=== PATIENT | male | born 1955 | race Caucasian/White ===

== ENCOUNTER 2023-07-11 12:46 | Inpatient (IN) | payer MEDICARE, MEDICAID ==
[~2023-07-11] VITALS: Ht 180.3 cm; Wt 105.7 kg
[2023-07-11] MEDS ORDERED: ALBUTEROL SULFATE 2.5MG/0.5ML INH NEB SOLN INH ONE (13:05)
[2023-07-11] MEDS ORDERED: ALBUTEROL SULFATE 2.5MG/0.5ML INH NEB SOLN As Ordered ONE (13:05)
[2023-07-11] MEDS ORDERED: IPRATROPIUM 0.5MG/ALBUTEROL 2.5MG INH SOL UD 3ML (DUONEB) NEB ONE (13:05)
[2023-07-11] MEDS ORDERED: IPRATROPIUM 0.5MG/ALBUTEROL 2.5MG INH SOL UD 3ML (DUONEB) As Ordered ONE (13:06)
[2023-07-11 13:11] LABS: VENOUS BASE EXCESS 1.3 (-2.0-2.0); VENOUS PARTIAL PRESSURE CO2 36.1 mmHg (38.0-50.0); VENOUS PARTIAL PRESSURE O2 37.2 mmHg (30.0-50.0); VENOUS PH 7.458 UNITS (7.330-7.430); VENOUS TOTAL CO2 26.1 MMOL/L (24.0-28.0)
[2023-07-11 13:34] LABS: HEMATOCRIT 27.6 % (42.0-52.0); HEMOGLOBIN 9.6 g/dl (13.5-17.5); MEAN CORPUSCULAR HEMOGLOBIN 31.5 pg (27.0-33.0); MEAN CORPUSCULAR HGB CONC 34.8 g/dl (32.0-36.5); MEAN CORPUSCULAR VOLUME 90.5 fl (80.0-96.0); RED BLOOD COUNT 3.05 10^6/uL (4.30-6.10); WHITE BLOOD COUNT 13.5 10^3/uL (4.0-10.0)
[2023-07-11 13:35] LABS: BASO # 0.1 10^3/uL (0.0-0.2); BASO % 0.4 % (0.0-1.0); EOS # 0.4 10^3/uL (0.0-0.5); MONO # 0.8 10^3/uL (0.0-0.8); MONO % 5.5 % (2.0-8.0); NEUTROPHILS # 9.2 10^3/uL (1.5-8.5); NEUTROPHILS % 68.4 % (36.0-66.0); PLATELET COUNT, AUTOMATED 255 10^3/uL (150-450)
[2023-07-11 13:41] LABS: INR 1.48; PROTHROMBIN TIME 17.5 SECONDS (12.5-14.5)
[2023-07-11 13:43] LABS: LIPASE 35 U/L (12-53); PARTIAL THROMBOPLASTIN TIME 36.3 SECONDS (24.8-34.2)
[2023-07-11 13:45] LABS: ALBUMIN 2.2 G/DL (3.2-5.2); ALKALINE PHOSPHATASE 166 U/L (46-116); ALT/SGPT 15 U/L (7.0-40); AST/SGOT 44 U/L (<34); BILIRUBIN,DIRECT 0.5 MG/DL (<0.4); BILIRUBIN,TOTAL 0.9 MG/DL (0.3-1.2); BLOOD UREA NITROGEN 11 MG/DL (9-23); CALCIUM LEVEL 7.4 MG/DL (8.3-10.6); CARBON DIOXIDE LEVEL 25 MMOL/L (20-31); CHLORIDE LEVEL 94 MMOL/L (98-107); CK-MB VALUE MASS < 1.0 NG/ML (<3.6); CREATININE FOR GFR 0.71 MG/DL (0.70-1.30); GLOMERULAR FILTRATION RATE > 60.0 (>49); GLUCOSE, FASTING 166 MG/DL (74-106); POTASSIUM SERUM 3.6 MMOL/L (3.5-5.1); SODIUM LEVEL 132 MMOL/L (136-145); TOTAL PROTEIN 6.9 G/DL (5.7-8.2)
[2023-07-11 13:47] LABS: THYROID STIMULATING HORMONE 4.305 uIU/ML (0.55-4.78)
[2023-07-11 13:49] LABS: CPK CREATINE PHOSPHOKINASE 35 U/L (46-171); MB/CK RELATIVE INDEX 2.85 (< OR =4)
[2023-07-11 13:59] LABS: RSV AMPLIFICATION NEGATIVE (NEGATIVE)
[2023-07-11] MEDS ORDERED: ISOVUE-370 76% 100ML VIAL As Ordered ONE (14:25)
[2023-07-11 14:39] LABS: CK-MB VALUE MASS < 1.0 NG/ML (<3.6); CPK CREATINE PHOSPHOKINASE 33 U/L (46-171); MB/CK RELATIVE INDEX 3.03 (< OR =4)
[2023-07-11] MEDS ORDERED: methylPREDNISolone 125MG 2ML VIAL IV ONE (15:55)
[2023-07-11 16:40] LABS: CPK CREATINE PHOSPHOKINASE 20 U/L (46-171)
[2023-07-11 16:43] LABS: CK-MB VALUE MASS < 1.0 NG/ML (<3.6)
[2023-07-11 17:00] LABS: PROCALCITONIN 0.39 ng/ml
[2023-07-11] MEDS ORDERED: FLEET ENEMA PR PRN (17:15)
[2023-07-11] MEDS ORDERED: LEVALBUTEROL 1.25MG 0.5ML CONCENTRATE NEB INH PRN (17:15)
[2023-07-11] MEDS ORDERED: MOM 30ML SUSPENSION UDC PO PRN (17:15)
[2023-07-11] MEDS ORDERED: LevoFLOXacin 750 MG TABLET PO ONE (17:15)
[2023-07-11] MEDS ORDERED: MED REC IN PROGRESS XX SCH (17:20)
[2023-07-11] MEDS ORDERED: ENOXAPARIN 40MG/0.4ML SYRINGE (J1650 PER 10MG) SC ONE (17:20)
[2023-07-11] MEDS: IPRATROPIUM 0.02% SOLN 0.5MG 2.5ML NEB INH SCH ×3 (18:00→20:00)
[2023-07-11] MEDS ORDERED: CETI-24 PO (18:24)
[2023-07-11] MEDS ORDERED: ZOLO100T PO (18:24)
[2023-07-11] MEDS ORDERED: OMEP-173 PO (18:24)
[2023-07-11] MEDS ORDERED: ROSU10TA6 PO (18:24)
[2023-07-11] MEDS ORDERED: MULT-124 PO (18:24)
[2023-07-11] MEDS ORDERED: HOME MED LIST COMPLETE! XX SCH (18:30)
[2023-07-11] MEDS ORDERED: MORPHINE 2 MG/ML 1ML VIAL IV PRN (18:35)
[2023-07-11] MEDS ORDERED: PERCOCET 5MG/325MG TAB PO ONE (18:35)
[2023-07-11] MEDS ORDERED: NITROGLYCERIN 0.4MG SUBL TABLET SL PRN (18:35)
[2023-07-11] MEDS ORDERED: NS 1,000 ML IV SCH (18:35)
[2023-07-11] MEDS ORDERED: NALOXONE INJ 0.4MG/1ML VIAL IV PRN (18:35)
[2023-07-11] MEDS ORDERED: ASPIRIN 81MG CHEW TABLET PO ONE (18:55)
[2023-07-11 19:32] LABS: CK-MB VALUE MASS < 1.0 NG/ML (<3.6)
[2023-07-11 19:33] LABS: CPK CREATINE PHOSPHOKINASE 25 U/L (46-171)
[2023-07-11] MEDS: LEVALBUTEROL 1.25MG 0.5ML CONCENTRATE NEB INH SCH (19:34)
[2023-07-11] MEDS: KETOROLAC 30 MG/ML 1ML VIAL IV SCH (20:44)
[2023-07-11] MEDS: SUCRALFATE SUSP 1GM/10ML UD PO SCH ×2 (21:10→21:14)
[2023-07-11] MEDS: SENOKOT S TAB PO SCH (21:13)
[2023-07-11 22:15] VITALS: BP 120/68; TEMP 97.7; O2SAT 95
[2023-07-11] MEDS: MIRALAX *UNIT DOSE* 17GM PACKET PO SCH (22:52)
[2023-07-11] MEDS: DICLOFENAC EPOLAMINE 1.3% PATCH TOP SCH (22:52)
[2023-07-11] MEDS: methylPREDNISolone 40MG 1ML VIAL IV SCH (22:52)
[2023-07-11] MEDS ORDERED: IPRATROPIUM 0.02% SOLN 0.5MG 2.5ML NEB INH PRN (23:35)
[2023-07-12] VITALS (7 sets, daily range): BP systolic 106–117; BP diastolic 60–71; TEMP 97.5–98.1; O2SAT 91–97
[2023-07-12 00:48] LABS: CK-MB VALUE MASS < 1.0 NG/ML (<3.6)
[2023-07-12 00:49] LABS: CPK CREATINE PHOSPHOKINASE 20 U/L (46-171)
[2023-07-12] MEDS: methylPREDNISolone 40MG 1ML VIAL IV SCH ×4 (03:50→21:06)
[2023-07-12] MEDS: KETOROLAC 30 MG/ML 1ML VIAL IV SCH ×4 (03:50→21:07)
[2023-07-12 06:36] LABS: CK-MB VALUE MASS < 1.0 NG/ML (<3.6)
[2023-07-12 06:37] LABS: CPK CREATINE PHOSPHOKINASE 18 U/L (46-171); MB/CK RELATIVE INDEX 5.55 (< OR =4)
[2023-07-12] MEDS: SUCRALFATE SUSP 1GM/10ML UD PO SCH ×4 (07:30→21:06)
[2023-07-12] MEDS: LEVALBUTEROL 1.25MG 0.5ML CONCENTRATE NEB INH SCH ×3 (08:02→19:46)
[2023-07-12] MEDS: IPRATROPIUM 0.02% SOLN 0.5MG 2.5ML NEB INH SCH ×3 (08:02→19:47)
[2023-07-12] MEDS ORDERED: GLUCAGON INJ 1MG VIAL SC PRN (08:10)
[2023-07-12] MEDS ORDERED: GLUCOSE 4GM CHEW TABLET PO PRN (08:10)
[2023-07-12] MEDS ORDERED: DEXTROSE 50% 50ML SYRINGE IV PRN (08:10)
[2023-07-12] MEDS ORDERED: E-Z-PAQUE 96% w/w SUSP 176GM BTL As Ordered ONE (08:37)
[2023-07-12] MEDS ORDERED: E-Z-HD 98% w/w 340GM SUSP BTL As Ordered ONE (08:38)
[2023-07-12] MEDS ORDERED: E-Z-GAS II EFFERVESCENT PACKET (SODIUM BICARB./CITRIC ACID/SIMETHICONE) As Ordered ONE (08:38)
[2023-07-12] MEDS: THIAMINE 100 MG TAB PO SCH ×2 (09:00→21:07)
[2023-07-12] MEDS: MULTIVITAMINS/MINERALS THERAP 1 TAB PO SCH (09:00)
[2023-07-12] MEDS: SERTRALINE 100 MG TAB PO SCH (09:00)
[2023-07-12] MEDS: ASPIRIN 81MG CHEW TABLET PO SCH (09:00)
[2023-07-12] MEDS: FOLIC ACID 1MG TAB PO SCH (09:00)
[2023-07-12] MEDS: CETIRIZINE (ZyrTEC) 10 MG TAB PO SCH (09:00)
[2023-07-12] MEDS: MIRALAX *UNIT DOSE* 17GM PACKET PO SCH ×2 (09:00→21:06)
[2023-07-12] MEDS ORDERED: PANTOPRAZOLE 40MG TAB (PROTONIX) PO SCH (09:00)
[2023-07-12] MEDS: SENOKOT S TAB PO SCH ×2 (09:00→21:07)
[2023-07-12] MEDS: ROSUVASTATIN 10 MG TAB (CRESTOR) PO SCH (09:00)
[2023-07-12] MEDS: OMEPRAZOLE 20MG CAP PO SCH (09:00)
[2023-07-12 09:06] LABS: HEMOGLOBIN A1c 5.9 % (4.0-6.0)
[2023-07-12] MEDS: D5W/0.45% SODIUM CHLORIDE 1,000 ML IV SCH (09:14)
[2023-07-12] MEDS: DICLOFENAC EPOLAMINE 1.3% PATCH TOP SCH ×2 (09:30→21:07)
[2023-07-12] MEDS: OXAZEPAM 15MG CAP PO SCH ×2 (12:00→19:30)
[2023-07-12] MEDS ORDERED: LORazepam 2 MG/ML 1ML VIAL IV STA ×2 (12:01→17:24)
[2023-07-12] MEDS ORDERED: LORazepam 2 MG TAB PO PRN (12:05)
[2023-07-12] MEDS: INSULIN LISPRO (NovoLOG) PER UNIT SC SCH ×2 (12:42→19:29)
[2023-07-12 13:01] LABS: CPK CREATINE PHOSPHOKINASE 26 U/L (46-171)
[2023-07-12 13:02] LABS: CK-MB VALUE MASS < 1.0 NG/ML (<3.6); MB/CK RELATIVE INDEX 3.84 (< OR =4)
[2023-07-12] MEDS ORDERED: PROHANCE 279.3MG/ML 5ML VIAL As Ordered ONE (18:09)
[2023-07-12] MEDS ORDERED: PROHANCE 279.3MG/ML 15ML VIAL As Ordered ONE (18:09)
[2023-07-12] MEDS: LevoFLOXacin 750 MG TABLET PO SCH (19:30)
[2023-07-12] MEDS: ENOXAPARIN 40MG/0.4ML SYRINGE (J1650 PER 10MG) SC SCH (19:32)
[2023-07-12 20:15] LABS: CK-MB VALUE MASS < 1.0 NG/ML (<3.6)
[2023-07-12 20:17] LABS: CPK CREATINE PHOSPHOKINASE 24 U/L (46-171); MB/CK RELATIVE INDEX 4.16 (< OR =4)
[2023-07-13] VITALS (7 sets, daily range): BP systolic 90–134; BP diastolic 59–88; TEMP 97.9–98.1; O2SAT 91–98
[2023-07-13] MEDS: OXAZEPAM 15MG CAP PO SCH ×5 (00:08→23:49)
[2023-07-13] MEDS: INSULIN LISPRO (NovoLOG) PER UNIT SC SCH ×4 (00:37→18:11)
[2023-07-13] MEDS: methylPREDNISolone 40MG 1ML VIAL IV SCH ×2 (03:06→08:25)
[2023-07-13] MEDS: KETOROLAC 30 MG/ML 1ML VIAL IV SCH ×4 (03:06→21:17)
[2023-07-13] MEDS: IPRATROPIUM 0.02% SOLN 0.5MG 2.5ML NEB INH SCH ×4 (07:50→19:26)
[2023-07-13] MEDS: LEVALBUTEROL 1.25MG 0.5ML CONCENTRATE NEB INH SCH ×4 (07:50→19:26)
[2023-07-13] MEDS: MIRALAX *UNIT DOSE* 17GM PACKET PO SCH ×2 (08:24→21:16)
[2023-07-13] MEDS: THIAMINE 100 MG TAB PO SCH ×2 (08:25→21:16)
[2023-07-13] MEDS: CETIRIZINE (ZyrTEC) 10 MG TAB PO SCH (08:25)
[2023-07-13] MEDS: SUCRALFATE SUSP 1GM/10ML UD PO SCH ×4 (08:25→21:16)
[2023-07-13] MEDS: MULTIVITAMINS/MINERALS THERAP 1 TAB PO SCH (08:25)
[2023-07-13] MEDS: DICLOFENAC EPOLAMINE 1.3% PATCH TOP SCH ×2 (08:25→21:16)
[2023-07-13] MEDS: ROSUVASTATIN 10 MG TAB (CRESTOR) PO SCH (08:25)
[2023-07-13] MEDS: OMEPRAZOLE 20MG CAP PO SCH (08:25)
[2023-07-13] MEDS: FOLIC ACID 1MG TAB PO SCH (08:25)
[2023-07-13] MEDS: ASPIRIN 81MG CHEW TABLET PO SCH (08:26)
[2023-07-13] MEDS: D5W/0.45% SODIUM CHLORIDE 1,000 ML IV SCH (08:26)
[2023-07-13] MEDS: SENOKOT S TAB PO SCH ×2 (08:26→21:16)
[2023-07-13] MEDS: SERTRALINE 100 MG TAB PO SCH (08:26)
[2023-07-13 12:43] LABS: BASO % 0.1 % (0.0-1.0); HEMATOCRIT 25.5 % (42.0-52.0); HEMOGLOBIN 8.8 g/dl (13.5-17.5); LYMPH # 1.7 10^3/uL (1.5-5.0); LYMPH % 13.1 % (24.0-44.0); MEAN CORPUSCULAR HEMOGLOBIN 31.1 pg (27.0-33.0); MEAN CORPUSCULAR HGB CONC 34.5 g/dl (32.0-36.5); MEAN CORPUSCULAR VOLUME 90.1 fl (80.0-96.0); MONO # 0.4 10^3/uL (0.0-0.8); NEUTROPHILS # 10.7 10^3/uL (1.5-8.5); NEUTROPHILS % 82.7 % (36.0-66.0); PLATELET COUNT, AUTOMATED 191 10^3/uL (150-450); RED BLOOD COUNT 2.83 10^6/uL (4.30-6.10); WHITE BLOOD COUNT 12.9 10^3/uL (4.0-10.0)
[2023-07-13 12:50] LABS: ERYTHROCYTE SEDIMENTATION RATE 103 mm/hr (0-20)
[2023-07-13 13:14] LABS: ALBUMIN 2.4 G/DL (3.2-5.2); ALKALINE PHOSPHATASE 149 U/L (46-116); ALT/SGPT 18 U/L (7.0-40); AST/SGOT 40 U/L (<34); BILIRUBIN,TOTAL 0.5 MG/DL (0.3-1.2); BLOOD UREA NITROGEN 28 MG/DL (9-23); CARBON DIOXIDE LEVEL 29 MMOL/L (20-31); CHLORIDE LEVEL 93 MMOL/L (98-107); CREATININE FOR GFR 0.88 MG/DL (0.70-1.30); GLOMERULAR FILTRATION RATE > 60.0 (>49); GLUCOSE, FASTING 166 MG/DL (74-106); SODIUM LEVEL 133 MMOL/L (136-145); TOTAL PROTEIN 6.8 G/DL (5.7-8.2)
[2023-07-13] MEDS: LevoFLOXacin 750 MG TABLET PO SCH (18:09)
[2023-07-13] MEDS: ENOXAPARIN 40MG/0.4ML SYRINGE (J1650 PER 10MG) SC SCH (18:09)
[2023-07-13 19:20] LABS: PROCALCITONIN 0.27 ng/ml
[2023-07-14] MEDS: KETOROLAC 30 MG/ML 1ML VIAL IV SCH (02:25)
[2023-07-14] MEDS: INSULIN LISPRO (NovoLOG) PER UNIT SC SCH ×6 (05:59→21:00)
[2023-07-14 06:00] VITALS: BP 114/73; TEMP 97.9; O2SAT 95
[2023-07-14] MEDS: OXAZEPAM 15MG CAP PO SCH ×4 (06:01→23:28)
[2023-07-14] MEDS: IPRATROPIUM 0.02% SOLN 0.5MG 2.5ML NEB INH SCH ×4 (07:51→20:04)
[2023-07-14] MEDS: LEVALBUTEROL 1.25MG 0.5ML CONCENTRATE NEB INH SCH ×4 (07:51→20:04)
[2023-07-14] MEDS: ROSUVASTATIN 10 MG TAB (CRESTOR) PO SCH (09:18)
[2023-07-14] MEDS: DICLOFENAC EPOLAMINE 1.3% PATCH TOP SCH ×2 (09:18→21:48)
[2023-07-14] MEDS: predniSONE 10MG TAB PO SCH (09:18)
[2023-07-14] MEDS: MULTIVITAMINS/MINERALS THERAP 1 TAB PO SCH (09:18)
[2023-07-14] MEDS: OMEPRAZOLE 20MG CAP PO SCH ×2 (09:18→21:45)
[2023-07-14] MEDS: FOLIC ACID 1MG TAB PO SCH (09:18)
[2023-07-14] MEDS: ASPIRIN 81MG CHEW TABLET PO SCH (09:18)
[2023-07-14] MEDS: SUCRALFATE SUSP 1GM/10ML UD PO SCH ×4 (09:18→21:48)
[2023-07-14] MEDS: CETIRIZINE (ZyrTEC) 10 MG TAB PO SCH (09:19)
[2023-07-14] MEDS: SENOKOT S TAB PO SCH ×2 (09:19→21:44)
[2023-07-14] MEDS: SERTRALINE 100 MG TAB PO SCH (09:19)
[2023-07-14] MEDS: THIAMINE 100 MG TAB PO SCH ×2 (09:19→21:46)
[2023-07-14] MEDS: MIRALAX *UNIT DOSE* 17GM PACKET PO SCH ×2 (09:20→21:00)
[2023-07-14] MEDS: PERCOCET 5MG/325MG TAB PO PRN (09:20)
[2023-07-14 10:04] LABS: HEMATOCRIT 24.4 % (42.0-52.0); HEMOGLOBIN 8.5 g/dl (13.5-17.5); MEAN CORPUSCULAR HEMOGLOBIN 31.6 pg (27.0-33.0); MEAN CORPUSCULAR HGB CONC 34.8 g/dl (32.0-36.5); MEAN CORPUSCULAR VOLUME 90.7 fl (80.0-96.0); PLATELET COUNT, AUTOMATED 226 10^3/uL (150-450); RED BLOOD COUNT 2.69 10^6/uL (4.30-6.10); WHITE BLOOD COUNT 14.6 10^3/uL (4.0-10.0)
[2023-07-14 10:41] LABS: ATYPICAL LYMPH 10 % (0-5); EOSINOPHILS 7 % (0-3); LYMPHOCYTES 18 % (16-44); MONOCYTES 3 % (0-5); NEUTROPHILS 62 % (28-66); PLATELET ESTIMATE NORMAL (NORMAL)
[2023-07-14 12:02] LABS: BLOOD UREA NITROGEN 35 MG/DL (9-23); CALCIUM LEVEL 8.3 MG/DL (8.3-10.6); CARBON DIOXIDE LEVEL 30 MMOL/L (20-31); CHLORIDE LEVEL 98 MMOL/L (98-107); CREATININE FOR GFR 1.07 MG/DL (0.70-1.30); GLOMERULAR FILTRATION RATE > 60.0 (>49); GLUCOSE, FASTING 144 MG/DL (74-106); MAGNESIUM LEVEL 1.2 MG/DL (1.8-2.4); POTASSIUM SERUM 2.5 MMOL/L (3.5-5.1); SODIUM LEVEL 137 MMOL/L (136-145)
[2023-07-14] MEDS: MAGNESIUM OXIDE 400MG TAB (MAG-OX) PO SCH ×2 (12:52→21:44)
[2023-07-14] MEDS: POTASSIUM CHLORIDE 10MEQ SR TABLET PO SCH ×2 (12:53→21:48)
[2023-07-14] MEDS: IBUPROFEN 100MG 5ML ORAL SUSP UDC PO SCH ×2 (12:54→18:04)
[2023-07-14 14:00] VITALS: BP 119/73; TEMP 97.5; O2SAT 91
[2023-07-14 15:12] LABS: ANTINUCLEAR ANTIBODIES DIRECT Negative (Negative)
[2023-07-14] MEDS: LevoFLOXacin 750 MG TABLET PO SCH (18:03)
[2023-07-14] MEDS: ENOXAPARIN 40MG/0.4ML SYRINGE (J1650 PER 10MG) SC SCH (18:04)
[2023-07-14] MEDS ORDERED: MAG SULF 1GM/100ML (MAG RUN) 1 GM in IV 1 EA IV ONE (23:00)
[2023-07-15] MEDS: PERCOCET 5MG/325MG TAB PO PRN (02:22)
[2023-07-15 05:07] VITALS: BP 117/72; TEMP 97.9; O2SAT 94
[2023-07-15] MEDS: OXAZEPAM 15MG CAP PO SCH (05:08)
[2023-07-15] MEDS: INSULIN LISPRO (NovoLOG) PER UNIT SC SCH ×4 (07:30→21:00)
[2023-07-15] MEDS: IPRATROPIUM 0.02% SOLN 0.5MG 2.5ML NEB INH SCH ×4 (07:30→19:19)
[2023-07-15] MEDS: LEVALBUTEROL 1.25MG 0.5ML CONCENTRATE NEB INH SCH ×4 (07:30→19:19)
[2023-07-15] MEDS: MIRALAX *UNIT DOSE* 17GM PACKET PO SCH ×2 (09:00→19:50)
[2023-07-15] MEDS: SUCRALFATE SUSP 1GM/10ML UD PO SCH ×4 (09:49→19:48)
[2023-07-15] MEDS: predniSONE 10MG TAB PO SCH (09:49)
[2023-07-15] MEDS: ASPIRIN 81MG CHEW TABLET PO SCH (09:49)
[2023-07-15] MEDS: FOLIC ACID 1MG TAB PO SCH (09:49)
[2023-07-15] MEDS: SENOKOT S TAB PO SCH ×2 (09:49→19:48)
[2023-07-15] MEDS: CETIRIZINE (ZyrTEC) 10 MG TAB PO SCH (09:50)
[2023-07-15] MEDS: ROSUVASTATIN 10 MG TAB (CRESTOR) PO SCH (09:50)
[2023-07-15] MEDS: OMEPRAZOLE 20MG CAP PO SCH ×2 (09:50→19:48)
[2023-07-15] MEDS: IBUPROFEN 400MG TAB PO SCH ×3 (09:50→17:57)
[2023-07-15] MEDS: MULTIVITAMINS/MINERALS THERAP 1 TAB PO SCH (09:50)
[2023-07-15] MEDS: SERTRALINE 100 MG TAB PO SCH (09:50)
[2023-07-15] MEDS: DICLOFENAC EPOLAMINE 1.3% PATCH TOP SCH ×2 (09:51→19:48)
[2023-07-15 09:53] LABS: MAGNESIUM LEVEL 1.3 MG/DL (1.7-2.2); POTASSIUM SERUM 3.5 MEQ/L (3.6-5.0)
[2023-07-15] MEDS: POTASSIUM CHLORIDE 10MEQ SR TABLET PO SCH ×3 (15:03→20:26)
[2023-07-15] MEDS: MAGNESIUM OXIDE 400MG TAB (MAG-OX) PO SCH ×2 (15:03→19:48)
[2023-07-15 16:52] LABS: MAGNESIUM LEVEL 1.7 MG/DL (1.7-2.2); POTASSIUM SERUM 3.5 MEQ/L (3.6-5.0)
[2023-07-15] MEDS: ENOXAPARIN 40MG/0.4ML SYRINGE (J1650 PER 10MG) SC SCH (17:56)
[2023-07-15] MEDS: LevoFLOXacin 750 MG TABLET PO SCH (17:57)
[2023-07-15 20:00] VITALS: BP 124/78; TEMP 98.2; O2SAT 92
[2023-07-15] MEDS: guaiFENesin ER TABLET 600 MG TAB PO SCH (21:09)
[2023-07-16 06:00] VITALS: BP 126/76; TEMP 97.7; O2SAT 99
[2023-07-16] MEDS: INSULIN LISPRO (NovoLOG) PER UNIT SC SCH ×4 (07:30→20:06)
[2023-07-16 07:36] LABS: HEMATOCRIT 24.8 % (42.0-52.0); HEMOGLOBIN 8.3 g/dl (13.5-17.5); MEAN CORPUSCULAR HGB CONC 33.5 g/dl (32.0-36.5); MEAN CORPUSCULAR VOLUME 92.5 fl (80.0-96.0); PLATELET COUNT, AUTOMATED 254 10^3/uL (150-450); RED BLOOD COUNT 2.68 10^6/uL (4.30-6.10); WHITE BLOOD COUNT 17.1 10^3/uL (4.0-10.0)
[2023-07-16 07:47] LABS: ERYTHROCYTE SEDIMENTATION RATE 95 mm/hr (0-20)
[2023-07-16] MEDS: IPRATROPIUM 0.02% SOLN 0.5MG 2.5ML NEB INH SCH ×4 (07:57→19:30)
[2023-07-16] MEDS: LEVALBUTEROL 1.25MG 0.5ML CONCENTRATE NEB INH SCH ×4 (07:57→19:30)
[2023-07-16 08:07] LABS: EOSINOPHILS 2 % (0-3); LYMPHOCYTES 27 % (16-44); METAMYELOCYTES 4 % (0-0); MONOCYTES 1 % (0-5); MYELOCYTES 3 % (0-0); NEUTROPHILS 61 % (28-66)
[2023-07-16 08:08] LABS: ANISOCYTOSIS 1+; PLATELET ESTIMATE NORMAL (NORMAL)
[2023-07-16 08:09] LABS: POLYCHROMASIA 2+
[2023-07-16] MEDS: ASPIRIN 81MG CHEW TABLET PO SCH (09:31)
[2023-07-16] MEDS: SUCRALFATE SUSP 1GM/10ML UD PO SCH ×4 (09:31→20:02)
[2023-07-16] MEDS: predniSONE 10MG TAB PO SCH (09:32)
[2023-07-16] MEDS: SERTRALINE 100 MG TAB PO SCH (09:32)
[2023-07-16] MEDS: MULTIVITAMINS/MINERALS THERAP 1 TAB PO SCH (09:32)
[2023-07-16] MEDS: MAGNESIUM OXIDE 400MG TAB (MAG-OX) PO SCH (09:32)
[2023-07-16] MEDS: ROSUVASTATIN 10 MG TAB (CRESTOR) PO SCH (09:32)
[2023-07-16] MEDS: SENOKOT S TAB PO SCH ×2 (09:32→20:02)
[2023-07-16] MEDS: FOLIC ACID 1MG TAB PO SCH (09:33)
[2023-07-16] MEDS: CETIRIZINE (ZyrTEC) 10 MG TAB PO SCH (09:33)
[2023-07-16] MEDS: guaiFENesin ER TABLET 600 MG TAB PO SCH ×2 (09:33→20:03)
[2023-07-16] MEDS: OMEPRAZOLE 20MG CAP PO SCH ×2 (09:33→20:02)
[2023-07-16] MEDS: MIRALAX *UNIT DOSE* 17GM PACKET PO SCH ×2 (09:33→20:02)
[2023-07-16] MEDS: DICLOFENAC EPOLAMINE 1.3% PATCH TOP SCH ×2 (09:33→20:02)
[2023-07-16] MEDS: POTASSIUM CHLORIDE 10MEQ SR TABLET PO SCH ×3 (09:33→20:02)
[2023-07-16 10:30] VITALS: BP 98/60
[2023-07-16] MEDS: MIDODRINE 5 MG TAB PO SCH ×2 (11:00→13:01)
[2023-07-16 11:29] VITALS: BP 146/85
[2023-07-16 13:03] LABS: MAGNESIUM LEVEL 1.7 MG/DL (1.7-2.2)
[2023-07-16 14:00] VITALS: BP 133/80; TEMP 98.4; O2SAT 94
[2023-07-16] MEDS ORDERED: FOSFOMYCIN TROMETHAMINE 3 GM POWDER PACKET (MONUROL) PO ONE (14:10)
[2023-07-16] MEDS: PHENAZOPYRIDINE 100 MG TAB PO SCH ×2 (17:19→20:02)
[2023-07-16] MEDS: ENOXAPARIN 40MG/0.4ML SYRINGE (J1650 PER 10MG) SC SCH (17:20)
[2023-07-16] MEDS: LevoFLOXacin 750 MG TABLET PO SCH (17:20)
[2023-07-16 18:16] VITALS: BP 123/78
[2023-07-16] MEDS: TAMSULOSIN 0.4 MG CAP PO SCH (20:03)
[2023-07-17 06:00] VITALS: BP 126/77; TEMP 97.9; O2SAT 92
[2023-07-17] MEDS: INSULIN LISPRO (NovoLOG) PER UNIT SC SCH ×4 (07:30→21:00)
[2023-07-17] MEDS: LEVALBUTEROL 1.25MG 0.5ML CONCENTRATE NEB INH SCH ×4 (07:40→19:45)
[2023-07-17] MEDS: IPRATROPIUM 0.02% SOLN 0.5MG 2.5ML NEB INH SCH ×4 (07:41→19:46)
[2023-07-17] MEDS: DICLOFENAC EPOLAMINE 1.3% PATCH TOP SCH ×3 (08:07→21:24)
[2023-07-17] MEDS: SUCRALFATE SUSP 1GM/10ML UD PO SCH ×4 (08:07→21:27)
[2023-07-17] MEDS: ASPIRIN 81MG CHEW TABLET PO SCH (08:08)
[2023-07-17] MEDS: POTASSIUM CHLORIDE 10MEQ SR TABLET PO SCH (08:08)
[2023-07-17] MEDS: predniSONE 10MG TAB PO SCH (08:09)
[2023-07-17] MEDS: SENOKOT S TAB PO SCH ×2 (08:09→21:26)
[2023-07-17] MEDS: MULTIVITAMINS/MINERALS THERAP 1 TAB PO SCH (08:09)
[2023-07-17] MEDS: guaiFENesin ER TABLET 600 MG TAB PO SCH ×2 (08:09→21:26)
[2023-07-17] MEDS: MAGNESIUM OXIDE 400MG TAB (MAG-OX) PO SCH (08:10)
[2023-07-17] MEDS: OMEPRAZOLE 20MG CAP PO SCH ×2 (08:10→21:25)
[2023-07-17] MEDS: PHENAZOPYRIDINE 100 MG TAB PO SCH ×3 (08:10→21:25)
[2023-07-17] MEDS: ROSUVASTATIN 10 MG TAB (CRESTOR) PO SCH (08:11)
[2023-07-17] MEDS: MIDODRINE 5 MG TAB PO SCH ×3 (08:11→16:00)
[2023-07-17] MEDS: CETIRIZINE (ZyrTEC) 10 MG TAB PO SCH (08:11)
[2023-07-17] MEDS: FOLIC ACID 1MG TAB PO SCH (08:11)
[2023-07-17] MEDS: SERTRALINE 100 MG TAB PO SCH (08:11)
[2023-07-17 08:46] LABS: BASO % 0.3 % (0.0-1.0); EOS # 0.4 10^3/uL (0.0-0.5); HEMATOCRIT 28.1 % (42.0-52.0); HEMOGLOBIN 9.3 g/dl (13.5-17.5); LYMPH # 4.5 10^3/uL (1.5-5.0); MEAN CORPUSCULAR HEMOGLOBIN 32.1 pg (27.0-33.0); MEAN CORPUSCULAR HGB CONC 33.1 g/dl (32.0-36.5); MEAN CORPUSCULAR VOLUME 96.9 fl (80.0-96.0); MONO # 0.5 10^3/uL (0.0-0.8); MONO % 3.5 % (2.0-8.0); NEUTROPHILS # 7.5 10^3/uL (1.5-8.5); NEUTROPHILS % 55.6 % (36.0-66.0); PLATELET COUNT, AUTOMATED 251 10^3/uL (150-450); WHITE BLOOD COUNT 13.5 10^3/uL (4.0-10.0)
[2023-07-17 08:53] LABS: ERYTHROCYTE SEDIMENTATION RATE 65 mm/hr (0-20)
[2023-07-17 09:07] LABS: ABG BASE EXCESS 1.2 (-2.0-2.0); ABG HCO3 24.5 MMOL/L (22.0-26.0); ABG O2 SATURATION 93.4 % (95.0-99.0); ABG PARTIAL PRESSURE CO2 33.9 mmHg (35.0-45.0); ABG PARTIAL PRESSURE O2 69.3 mmHg (75.0-100.0); ABG STANDARD HCO3 25.5 MMOL/L. (22.0-26.0); ABG TOTAL CO2 25.6 MMOL/L (23.0-31.0); ABG pH (ARTERIAL) 7.477 UNITS (7.350-7.450)
[2023-07-17] MEDS ORDERED: ISOVUE-370 76% 100ML VIAL As Ordered ONE (09:31)
[2023-07-17] MEDS: MIRALAX *UNIT DOSE* 17GM PACKET PO SCH ×2 (09:42→21:24)
[2023-07-17 15:00] VITALS: BP 136/75
[2023-07-17] MEDS ORDERED: NS 1,000 ML IV ONE (15:55)
[2023-07-17] MEDS: NS 1,000 ML IV SCH (17:20)
[2023-07-17] MEDS: ENOXAPARIN 40MG/0.4ML SYRINGE (J1650 PER 10MG) SC SCH (17:21)
[2023-07-17] MEDS: LevoFLOXacin 750 MG TABLET PO SCH (17:23)
[2023-07-17 21:00] VITALS: BP 121/71
[2023-07-17 21:13] VITALS: BP 121/71; TEMP 98.2; O2SAT 94
[2023-07-17] MEDS: TAMSULOSIN 0.4 MG CAP PO SCH (21:24)
[2023-07-18] VITALS (8 sets, daily range): BP systolic 74–134; BP diastolic 40–75; TEMP 97.2–98.6; O2SAT 92–97
[2023-07-18] MEDS: NS 1,000 ML IV SCH ×3 (03:01→10:12)
[2023-07-18] MEDS: LEVALBUTEROL 1.25MG 0.5ML CONCENTRATE NEB INH SCH ×4 (07:13→19:34)
[2023-07-18] MEDS: IPRATROPIUM 0.02% SOLN 0.5MG 2.5ML NEB INH SCH ×4 (07:13→19:34)
[2023-07-18] MEDS: INSULIN LISPRO (NovoLOG) PER UNIT SC SCH ×4 (07:30→20:20)
[2023-07-18] MEDS: MIDODRINE 5 MG TAB PO SCH ×2 (08:48→11:50)
[2023-07-18] MEDS: MAGNESIUM OXIDE 400MG TAB (MAG-OX) PO SCH (08:54)
[2023-07-18] MEDS: SENOKOT S TAB PO SCH ×2 (08:54→20:21)
[2023-07-18] MEDS: ASPIRIN 81MG CHEW TABLET PO SCH (08:54)
[2023-07-18] MEDS: PHENAZOPYRIDINE 100 MG TAB PO SCH (08:54)
[2023-07-18] MEDS: SUCRALFATE SUSP 1GM/10ML UD PO SCH ×4 (08:54→20:21)
[2023-07-18] MEDS: SERTRALINE 100 MG TAB PO SCH (08:55)
[2023-07-18] MEDS: OMEPRAZOLE 20MG CAP PO SCH ×2 (08:55→20:21)
[2023-07-18] MEDS: CETIRIZINE (ZyrTEC) 10 MG TAB PO SCH (08:55)
[2023-07-18] MEDS: ROSUVASTATIN 10 MG TAB (CRESTOR) PO SCH (08:55)
[2023-07-18] MEDS: guaiFENesin ER TABLET 600 MG TAB PO SCH ×2 (08:55→20:21)
[2023-07-18] MEDS: predniSONE 10MG TAB PO SCH (08:55)
[2023-07-18] MEDS: MULTIVITAMINS/MINERALS THERAP 1 TAB PO SCH (08:55)
[2023-07-18] MEDS: FOLIC ACID 1MG TAB PO SCH (08:55)
[2023-07-18] MEDS: MIRALAX *UNIT DOSE* 17GM PACKET PO SCH ×2 (08:56→20:21)
[2023-07-18] MEDS: DICLOFENAC EPOLAMINE 1.3% PATCH TOP SCH ×2 (08:56→20:26)
[2023-07-18] MEDS ORDERED: FLUDROCORTISONE ACETATE 0.1 MG TAB PO SCH (09:00)
[2023-07-18] MEDS ORDERED: PILL CUTTER 1 EACH XX PRN (09:10)
[2023-07-18] MEDS ORDERED: LIDOCAINE 5% (LIDODERM) PATCH TD ONE (09:25)
[2023-07-18 09:56] LABS: BASO % 0.2 % (0.0-1.0); EOS # 0.3 10^3/uL (0.0-0.5); EOS % 3.3 % (0.0-3.0); HEMATOCRIT 25.7 % (42.0-52.0); HEMOGLOBIN 8.1 g/dl (13.5-17.5); MEAN CORPUSCULAR HEMOGLOBIN 32.3 pg (27.0-33.0); MEAN CORPUSCULAR HGB CONC 31.5 g/dl (32.0-36.5); MEAN CORPUSCULAR VOLUME 102.4 fl (80.0-96.0); MONO # 0.5 10^3/uL (0.0-0.8); MONO % 4.7 % (2.0-8.0); NEUTROPHILS # 5.6 10^3/uL (1.5-8.5); NEUTROPHILS % 59.3 % (36.0-66.0); PLATELET COUNT, AUTOMATED 170 10^3/uL (150-450); RED BLOOD COUNT 2.51 10^6/uL (4.30-6.10); WHITE BLOOD COUNT 9.5 10^3/uL (4.0-10.0)
[2023-07-18] MEDS ORDERED: METOCLOPRAMIDE INJ 10MG/2ML VIAL IV ONE (10:00)
[2023-07-18] MEDS ORDERED: ACETAMINOPHEN 500 MG TAB PO ONE (10:00)
[2023-07-18 10:28] LABS: ERYTHROCYTE SEDIMENTATION RATE 26 mm/hr (0-20)
[2023-07-18] MEDS ORDERED: HYDROCORTISONE 5MG TABLET PO ONE (11:00)
[2023-07-18] MEDS: ANALGESIC BALM CRM 3OZ TOP SCH ×3 (11:50→20:21)
[2023-07-18] MEDS: TAMSULOSIN 0.4 MG CAP PO SCH (20:21)
[2023-07-19] VITALS: BP 145/70; TEMP 98.2; O2SAT 98
[2023-07-19 03:46] VITALS: BP 137/64; TEMP 97.8; O2SAT 97
[2023-07-19 07:18] LABS: BASO % 0.4 % (0.0-1.0); EOS # 0.4 10^3/uL (0.0-0.5); EOS % 4.6 % (0.0-3.0); HEMOGLOBIN 7.7 g/dl (13.5-17.5); LYMPH # 3.2 10^3/uL (1.5-5.0); LYMPH % 38.7 % (24.0-44.0); MEAN CORPUSCULAR HEMOGLOBIN 31.8 pg (27.0-33.0); MEAN CORPUSCULAR HGB CONC 32.1 g/dl (32.0-36.5); MEAN CORPUSCULAR VOLUME 99.2 fl (80.0-96.0); MONO # 0.4 10^3/uL (0.0-0.8); MONO % 5.2 % (2.0-8.0); NEUTROPHILS # 4.1 10^3/uL (1.5-8.5); NEUTROPHILS % 50.1 % (36.0-66.0); PLATELET COUNT, AUTOMATED 157 10^3/uL (150-450); RED BLOOD COUNT 2.42 10^6/uL (4.30-6.10); WHITE BLOOD COUNT 8.1 10^3/uL (4.0-10.0)
[2023-07-19] MEDS: IPRATROPIUM 0.02% SOLN 0.5MG 2.5ML NEB INH SCH ×4 (07:19→18:49)
[2023-07-19] MEDS: LEVALBUTEROL 1.25MG 0.5ML CONCENTRATE NEB INH SCH ×4 (07:19→18:50)
[2023-07-19 07:21] VITALS: BP 161/76; TEMP 97.1; O2SAT 99
[2023-07-19] MEDS: INSULIN LISPRO (NovoLOG) PER UNIT SC SCH (07:30)
[2023-07-19 07:42] LABS: ALBUMIN 2.3 G/DL (3.2-5.2); ALKALINE PHOSPHATASE 130 U/L (46-116); ALT/SGPT 28 U/L (7.0-40); AST/SGOT 41 U/L (<34); BILIRUBIN,TOTAL 0.5 MG/DL (0.3-1.2); BLOOD UREA NITROGEN 14 MG/DL (9-23); CALCIUM LEVEL 7.8 MG/DL (8.3-10.6); CARBON DIOXIDE LEVEL 24 MMOL/L (20-31); CHLORIDE LEVEL 108 MMOL/L (98-107); CREATININE FOR GFR 0.85 MG/DL (0.70-1.30); GLOMERULAR FILTRATION RATE > 60.0 (>49); GLUCOSE, FASTING 78 MG/DL (74-106); POTASSIUM SERUM 3.9 MMOL/L (3.5-5.1); SODIUM LEVEL 140 MMOL/L (136-145); TOTAL PROTEIN 5.3 G/DL (5.7-8.2)
[2023-07-19 08:25] LABS: BLOOD UREA NITROGEN 23 MG/DL (7-21); C REACTIVE PROTEIN QUANTITATIV 19.01 MG/L (1.00-3.00); CREATININE FOR GFR 1.1 MG/DL (0.7-1.5); GLOMERULAR FILTRATION RATE > 60.0 (>49); GLUCOSE, FASTING 141 MG/DL; POTASSIUM SERUM 4.9 MEQ/L (3.6-5.0); SODIUM LEVEL 138 MEQ/L (134-153)
[2023-07-19 08:26] LABS: CALCIUM LEVEL 9.4 MG/DL (8.8-10.2); CARBON DIOXIDE LEVEL 23 MEQ/L (22-30); CHLORIDE LEVEL 102 MEQ/L (98-107)
[2023-07-19 09:00] VITALS: BP_SYST 102; BP_SYST 109; BP_DIAS 57
[2023-07-19] MEDS: ANALGESIC BALM CRM 3OZ TOP SCH ×4 (09:00→21:07)
[2023-07-19] MEDS: MIRALAX *UNIT DOSE* 17GM PACKET PO SCH ×2 (09:33→21:07)
[2023-07-19] MEDS: guaiFENesin ER TABLET 600 MG TAB PO SCH ×2 (09:34→21:06)
[2023-07-19] MEDS: SENOKOT S TAB PO SCH ×2 (09:34→21:06)
[2023-07-19] MEDS: SUCRALFATE SUSP 1GM/10ML UD PO SCH ×4 (09:34→21:06)
[2023-07-19] MEDS: predniSONE 10MG TAB PO SCH (09:34)
[2023-07-19] MEDS: MULTIVITAMINS/MINERALS THERAP 1 TAB PO SCH (09:34)
[2023-07-19] MEDS: FOLIC ACID 1MG TAB PO SCH (09:34)
[2023-07-19] MEDS: ROSUVASTATIN 10 MG TAB (CRESTOR) PO SCH (09:34)
[2023-07-19] MEDS: DICLOFENAC EPOLAMINE 1.3% PATCH TOP SCH ×2 (09:34→21:00)
[2023-07-19] MEDS: CETIRIZINE (ZyrTEC) 10 MG TAB PO SCH (09:35)
[2023-07-19] MEDS: SERTRALINE 100 MG TAB PO SCH (09:35)
[2023-07-19] MEDS: OMEPRAZOLE 20MG CAP PO SCH ×2 (09:35→21:06)
[2023-07-19] MEDS: MAGNESIUM OXIDE 400MG TAB (MAG-OX) PO SCH (09:35)
[2023-07-19 09:47] LABS: BLOOD UREA NITROGEN 18 MG/DL (7-21); GLOMERULAR FILTRATION RATE > 60.0 (>49); GLUCOSE, FASTING 108 MG/DL
[2023-07-19 09:50] LABS: ALKALINE PHOSPHATASE 139 U/L (40-129); ALT/SGPT 28 U/L (1-41); AST/SGOT 48 U/L (5-40); CALCIUM LEVEL 8.5 MG/DL (8.8-10.2); CARBON DIOXIDE LEVEL 19 MEQ/L (22-30); CHLORIDE LEVEL 109 MEQ/L (98-107); POTASSIUM SERUM 4.1 MEQ/L (3.6-5.0); SODIUM LEVEL 141 MEQ/L (134-153)
[2023-07-19 09:51] LABS: ALBUMIN 2.9 G/DL (3.9-5.0); BILIRUBIN,TOTAL < 0.7 MG/DL (0.2-1.3); TOTAL PROTEIN 5.6 G/DL (6.3-8.2)
[2023-07-19 09:52] LABS: CPK CREATINE PHOSPHOKINASE 15 U/L (30-170)
[2023-07-19 09:57] LABS: C REACTIVE PROTEIN QUANTITATIV 13.98 MG/L (1.00-3.00)
[2023-07-19 11:45] VITALS: BP 118/59; TEMP 97; O2SAT 92
[2023-07-19 14:19] LABS: BLOOD UREA NITROGEN 23 MG/DL (7-21); CALCIUM LEVEL 8.9 MG/DL (8.8-10.2); CARBON DIOXIDE LEVEL 30 MEQ/L (22-30); CHLORIDE LEVEL 99 MEQ/L (98-107); CREATININE FOR GFR 0.9 MG/DL (0.7-1.5); GLOMERULAR FILTRATION RATE > 60.0 (>49); GLUCOSE, FASTING 83 MG/DL; POTASSIUM SERUM 3.8 MEQ/L (3.6-5.0); SODIUM LEVEL 139 MEQ/L (134-153)
[2023-07-19 14:20] LABS: C REACTIVE PROTEIN QUANTITATIV 29.81 MG/L (1.00-3.00)
[2023-07-19 19:41] VITALS: BP 120/61; TEMP 98; O2SAT 93
[2023-07-19] MEDS: TAMSULOSIN 0.4 MG CAP PO SCH (21:06)
[2023-07-20 03:26] VITALS: BP 139/70; TEMP 97.7; O2SAT 93
[2023-07-20] MEDS: IPRATROPIUM 0.02% SOLN 0.5MG 2.5ML NEB INH SCH ×4 (07:49→19:30)
[2023-07-20] MEDS: LEVALBUTEROL 1.25MG 0.5ML CONCENTRATE NEB INH SCH ×4 (07:49→19:30)
[2023-07-20 07:54] LABS: BASO % 0.3 % (0.0-1.0); EOS # 0.5 10^3/uL (0.0-0.5); EOS % 4.4 % (0.0-3.0); HEMATOCRIT 27.5 % (42.0-52.0); HEMOGLOBIN 8.6 g/dl (13.5-17.5); LYMPH # 3.7 10^3/uL (1.5-5.0); LYMPH % 31.5 % (24.0-44.0); MEAN CORPUSCULAR HEMOGLOBIN 31.9 pg (27.0-33.0); MEAN CORPUSCULAR HGB CONC 31.3 g/dl (32.0-36.5); MEAN CORPUSCULAR VOLUME 101.9 fl (80.0-96.0); MONO # 0.6 10^3/uL (0.0-0.8); MONO % 5.3 % (2.0-8.0); NEUTROPHILS # 6.8 10^3/uL (1.5-8.5); NEUTROPHILS % 57.6 % (36.0-66.0); PLATELET COUNT, AUTOMATED 167 10^3/uL (150-450); WHITE BLOOD COUNT 11.7 10^3/uL (4.0-10.0)
[2023-07-20 08:05] VITALS: BP 102/62; TEMP 97.3; O2SAT 95
[2023-07-20 08:18] LABS: BLOOD UREA NITROGEN 10 MG/DL (9-23); CALCIUM LEVEL 8.4 MG/DL (8.3-10.6); CARBON DIOXIDE LEVEL 26 MMOL/L (20-31); CHLORIDE LEVEL 104 MMOL/L (98-107); CREATININE FOR GFR 0.86 MG/DL (0.70-1.30); GLOMERULAR FILTRATION RATE > 60.0 (>49); GLUCOSE, FASTING 79 MG/DL (74-106); POTASSIUM SERUM 3.5 MMOL/L (3.5-5.1); SODIUM LEVEL 138 MMOL/L (136-145)
[2023-07-20 09:00] VITALS: BP_SYST 102; BP_SYST 106; BP_SYST 118; BP_DIAS 56; BP_DIAS 60; BP_DIAS 68
[2023-07-20] MEDS: MIRALAX *UNIT DOSE* 17GM PACKET PO SCH ×2 (09:00→20:19)
[2023-07-20] MEDS: DICLOFENAC EPOLAMINE 1.3% PATCH TOP SCH ×2 (09:00→20:39)
[2023-07-20] MEDS: SENOKOT S TAB PO SCH ×2 (09:00→20:19)
[2023-07-20] MEDS: ANALGESIC BALM CRM 3OZ TOP SCH ×4 (09:00→20:39)
[2023-07-20] MEDS: VANICREAM MOISTURIZING SKIN CREAM 113GM TUBE TOP SCH (09:02)
[2023-07-20] MEDS: MULTIVITAMINS/MINERALS THERAP 1 TAB PO SCH (09:02)
[2023-07-20] MEDS: OMEPRAZOLE 20MG CAP PO SCH ×2 (09:02→20:43)
[2023-07-20] MEDS: guaiFENesin ER TABLET 600 MG TAB PO SCH ×2 (09:02→20:43)
[2023-07-20] MEDS: SUCRALFATE SUSP 1GM/10ML UD PO SCH ×4 (09:03→20:43)
[2023-07-20] MEDS: CETIRIZINE (ZyrTEC) 10 MG TAB PO SCH (09:03)
[2023-07-20] MEDS: MAGNESIUM OXIDE 400MG TAB (MAG-OX) PO SCH (09:03)
[2023-07-20] MEDS: predniSONE 10MG TAB PO SCH (09:03)
[2023-07-20] MEDS: SERTRALINE 100 MG TAB PO SCH (09:03)
[2023-07-20] MEDS: FOLIC ACID 1MG TAB PO SCH (09:03)
[2023-07-20] MEDS: ROSUVASTATIN 10 MG TAB (CRESTOR) PO SCH (09:03)
[2023-07-20] MEDS: FLUDROCORTISONE ACETATE 0.1 MG TAB PO SCH (20:43)
[2023-07-20 20:52] VITALS: BP 131/76; TEMP 98.1; O2SAT 92
[2023-07-21 05:27] VITALS: BP_SYST 102; BP_SYST 133; BP_DIAS 66; BP_DIAS 77; BP_DIAS 78
[2023-07-21 06:00] VITALS: BP 131/77; TEMP 98.6; O2SAT 93
[2023-07-21 06:50] LABS: PROCALCITONIN 0.14 NG/ML (0.0-0.08)
[2023-07-21 06:55] LABS: PROCALCITONIN 0.26 NG/ML (0.0-0.08)
[2023-07-21] MEDS: LEVALBUTEROL 1.25MG 0.5ML CONCENTRATE NEB INH SCH ×4 (07:24→19:22)
[2023-07-21] MEDS: IPRATROPIUM 0.02% SOLN 0.5MG 2.5ML NEB INH SCH ×4 (07:24→19:22)
[2023-07-21 08:45] LABS: CK-MB VALUE MASS 1.4 NG/ML (0.0-10.4); MB/CK RELATIVE INDEX 9.33 (< OR =4); PROCALCITONIN 0.17 NG/ML (0.0-0.08)
[2023-07-21] MEDS: SUCRALFATE SUSP 1GM/10ML UD PO SCH ×4 (08:48→20:25)
[2023-07-21] MEDS: guaiFENesin ER TABLET 600 MG TAB PO SCH ×2 (08:48→20:24)
[2023-07-21] MEDS: FOLIC ACID 1MG TAB PO SCH (08:49)
[2023-07-21] MEDS: SENOKOT S TAB PO SCH ×2 (08:49→20:24)
[2023-07-21] MEDS: OMEPRAZOLE 20MG CAP PO SCH ×2 (08:49→20:24)
[2023-07-21] MEDS: SERTRALINE 100 MG TAB PO SCH (08:49)
[2023-07-21] MEDS: CETIRIZINE (ZyrTEC) 10 MG TAB PO SCH (08:49)
[2023-07-21] MEDS: predniSONE 10MG TAB PO SCH (08:49)
[2023-07-21] MEDS: MAGNESIUM OXIDE 400MG TAB (MAG-OX) PO SCH (08:49)
[2023-07-21] MEDS: MULTIVITAMINS/MINERALS THERAP 1 TAB PO SCH (08:49)
[2023-07-21] MEDS: ROSUVASTATIN 10 MG TAB (CRESTOR) PO SCH (08:49)
[2023-07-21] MEDS: MIRALAX *UNIT DOSE* 17GM PACKET PO SCH ×2 (08:50→20:24)
[2023-07-21] MEDS: VANICREAM MOISTURIZING SKIN CREAM 113GM TUBE TOP SCH (08:50)
[2023-07-21] MEDS: ANALGESIC BALM CRM 3OZ TOP SCH ×5 (08:50→20:38)
[2023-07-21] MEDS: DICLOFENAC EPOLAMINE 1.3% PATCH TOP SCH ×2 (08:50→20:25)
[2023-07-21 11:19] VITALS: BP 136/80; TEMP 97.9; O2SAT 95
[2023-07-21 13:42] VITALS: BP 134/78; TEMP 98.4; O2SAT 95
[2023-07-21] MEDS: FLUDROCORTISONE ACETATE 0.1 MG TAB PO SCH (20:24)
[2023-07-21 22:00] VITALS: BP_SYST 104; BP_SYST 134; BP_SYST 135; BP_DIAS 65; BP_DIAS 78; BP_DIAS 79
[2023-07-22 06:00] VITALS: BP_SYST 128; BP_SYST 134; BP_SYST 136; BP_SYST 139; BP_DIAS 67; BP_DIAS 80; BP_DIAS 82; BP_DIAS 83; TEMP 98.4; O2SAT 91
[2023-07-22] MEDS: IPRATROPIUM 0.02% SOLN 0.5MG 2.5ML NEB INH SCH ×4 (07:46→19:31)
[2023-07-22] MEDS: LEVALBUTEROL 1.25MG 0.5ML CONCENTRATE NEB INH SCH ×4 (07:46→19:31)
[2023-07-22] MEDS: SENOKOT S TAB PO SCH (09:00)
[2023-07-22] MEDS: MIRALAX *UNIT DOSE* 17GM PACKET PO SCH (09:00)
[2023-07-22] MEDS: DICLOFENAC EPOLAMINE 1.3% PATCH TOP SCH (09:00)
[2023-07-22] MEDS: ANALGESIC BALM CRM 3OZ TOP SCH (09:00)
[2023-07-22] MEDS: MAGNESIUM OXIDE 400MG TAB (MAG-OX) PO SCH (09:36)
[2023-07-22] MEDS: FOLIC ACID 1MG TAB PO SCH (09:36)
[2023-07-22] MEDS: guaiFENesin ER TABLET 600 MG TAB PO SCH ×2 (09:36→21:21)
[2023-07-22] MEDS: SUCRALFATE SUSP 1GM/10ML UD PO SCH ×4 (09:36→21:21)
[2023-07-22] MEDS: OMEPRAZOLE 20MG CAP PO SCH ×2 (09:36→21:21)
[2023-07-22] MEDS: ROSUVASTATIN 10 MG TAB (CRESTOR) PO SCH (09:37)
[2023-07-22] MEDS: MULTIVITAMINS/MINERALS THERAP 1 TAB PO SCH (09:37)
[2023-07-22] MEDS: CETIRIZINE (ZyrTEC) 10 MG TAB PO SCH (09:37)
[2023-07-22] MEDS: SERTRALINE 100 MG TAB PO SCH (09:37)
[2023-07-22] MEDS ORDERED: MIRALAX *UNIT DOSE* 17GM PACKET PO PRN (11:05)
[2023-07-22] MEDS: VANICREAM MOISTURIZING SKIN CREAM 113GM TUBE TOP SCH (12:25)
[2023-07-22 17:21] VITALS: BP_SYST 118; BP_SYST 122; BP_SYST 134; BP_DIAS 71; BP_DIAS 76; BP_DIAS 79
[2023-07-22] MEDS: FLUDROCORTISONE ACETATE 0.1 MG TAB PO SCH (21:21)
[2023-07-23 05:58] VITALS: BP 118/73; TEMP 98.2; O2SAT 94
[2023-07-23] MEDS: IPRATROPIUM 0.02% SOLN 0.5MG 2.5ML NEB INH SCH ×4 (07:36→20:10)
[2023-07-23] MEDS: LEVALBUTEROL 1.25MG 0.5ML CONCENTRATE NEB INH SCH ×4 (07:36→20:10)
[2023-07-23] MEDS: MULTIVITAMINS/MINERALS THERAP 1 TAB PO SCH (08:31)
[2023-07-23] MEDS: FOLIC ACID 1MG TAB PO SCH (08:31)
[2023-07-23] MEDS: SERTRALINE 100 MG TAB PO SCH (08:31)
[2023-07-23] MEDS: ROSUVASTATIN 10 MG TAB (CRESTOR) PO SCH (08:31)
[2023-07-23] MEDS: OMEPRAZOLE 20MG CAP PO SCH ×2 (08:31→20:09)
[2023-07-23] MEDS: MAGNESIUM OXIDE 400MG TAB (MAG-OX) PO SCH (08:31)
[2023-07-23] MEDS: SUCRALFATE SUSP 1GM/10ML UD PO SCH ×4 (08:31→20:09)
[2023-07-23] MEDS: CETIRIZINE (ZyrTEC) 10 MG TAB PO SCH (08:31)
[2023-07-23] MEDS: VANICREAM MOISTURIZING SKIN CREAM 113GM TUBE TOP SCH (08:32)
[2023-07-23] MEDS: SENOKOT S TAB PO SCH (08:32)
[2023-07-23] MEDS: guaiFENesin ER TABLET 600 MG TAB PO SCH ×2 (08:32→20:09)
[2023-07-23 14:45] VITALS: BP 124/80; TEMP 99; O2SAT 88
[2023-07-23] MEDS ORDERED: ACETAMINOPHEN 500 MG TAB PO PRN (16:55)
[2023-07-23] MEDS: FLUDROCORTISONE ACETATE 0.1 MG TAB PO SCH (20:09)
[2023-07-24 05:28] VITALS: BP 122/78; TEMP 98.4; O2SAT 89
[2023-07-24] MEDS: LEVALBUTEROL 1.25MG 0.5ML CONCENTRATE NEB INH SCH ×4 (07:10→19:44)
[2023-07-24] MEDS: IPRATROPIUM 0.02% SOLN 0.5MG 2.5ML NEB INH SCH ×4 (07:10→19:45)
[2023-07-24] MEDS: MAGNESIUM OXIDE 400MG TAB (MAG-OX) PO SCH (08:22)
[2023-07-24] MEDS: ROSUVASTATIN 10 MG TAB (CRESTOR) PO SCH (08:22)
[2023-07-24] MEDS: CETIRIZINE (ZyrTEC) 10 MG TAB PO SCH (08:22)
[2023-07-24] MEDS: SUCRALFATE SUSP 1GM/10ML UD PO SCH ×4 (08:22→21:27)
[2023-07-24] MEDS: OMEPRAZOLE 20MG CAP PO SCH ×2 (08:22→20:47)
[2023-07-24] MEDS: MULTIVITAMINS/MINERALS THERAP 1 TAB PO SCH (08:22)
[2023-07-24] MEDS: guaiFENesin ER TABLET 600 MG TAB PO SCH ×2 (08:22→20:47)
[2023-07-24] MEDS: SENOKOT S TAB PO SCH (08:23)
[2023-07-24] MEDS: VANICREAM MOISTURIZING SKIN CREAM 113GM TUBE TOP SCH (08:23)
[2023-07-24] MEDS: SERTRALINE 100 MG TAB PO SCH (08:23)
[2023-07-24] MEDS: FOLIC ACID 1MG TAB PO SCH (08:23)
[2023-07-24] MEDS: FLUDROCORTISONE ACETATE 0.1 MG TAB PO SCH (20:47)
[2023-07-25 05:18] VITALS: BP 123/74; TEMP 98.4; O2SAT 90
[2023-07-25] MEDS: LEVALBUTEROL 1.25MG 0.5ML CONCENTRATE NEB INH SCH ×2 (07:18→11:26)
[2023-07-25] MEDS: IPRATROPIUM 0.02% SOLN 0.5MG 2.5ML NEB INH SCH ×2 (07:18→11:26)
[2023-07-25] MEDS: guaiFENesin ER TABLET 600 MG TAB PO SCH (08:44)
[2023-07-25] MEDS: MULTIVITAMINS/MINERALS THERAP 1 TAB PO SCH (08:44)
[2023-07-25] MEDS: CETIRIZINE (ZyrTEC) 10 MG TAB PO SCH (08:44)
[2023-07-25] MEDS: SERTRALINE 100 MG TAB PO SCH (08:44)
[2023-07-25] MEDS: FOLIC ACID 1MG TAB PO SCH (08:44)
[2023-07-25] MEDS: ROSUVASTATIN 10 MG TAB (CRESTOR) PO SCH (08:44)
[2023-07-25] MEDS: OMEPRAZOLE 20MG CAP PO SCH (08:44)
[2023-07-25] MEDS: SENOKOT S TAB PO SCH (08:45)
[2023-07-25] MEDS: MAGNESIUM OXIDE 400MG TAB (MAG-OX) PO SCH (08:45)
[2023-07-25] MEDS: VANICREAM MOISTURIZING SKIN CREAM 113GM TUBE TOP SCH (08:45)
[2023-07-25] MEDS: SUCRALFATE SUSP 1GM/10ML UD PO SCH ×2 (08:45→13:21)
[2023-07-25] MEDS ORDERED: FLUD0.1T PO (11:57)
[2023-07-25] MEDS ORDERED: ACET-683 PO (11:57)
[2023-07-25] MEDS ORDERED: MAGN400T2 PO (11:57)
[2023-07-25] MEDS ORDERED: MUCI600T31 PO (11:57)
[2023-07-25] MEDS ORDERED: OMEP-173 PO (11:57)
[2023-07-25] MEDS ORDERED: VENTAER INH (11:57)
[2023-07-25] MEDS ORDERED: SENN-52 PO (11:57)
[2023-07-25] MEDS ORDERED: IPRA0.00 NEB (12:01)
[2023-07-25] MEDS ORDERED: FLUZONE HIGH DOSE(65YR UP)QUAD/PF 240MCG/0.7ML SYRINGE IM.IMMUN ONE (15:00)
== END 2023-07-25 13:53 | disposition home or self-care (01) | DRG 191 ==
LOC: M ED 12:46 → M ED INP 17:11 → M MSPAV 22:10 → M PCU 07-18 09:53 → M MSPAV 07-20 20:58
PROVIDERS: ADMIT General Practice; ATTEND Internal Medicine Nephrology
PROC: B246ZZZ Ultrasonography of Right and Left Heart (ICD-10-PCS; principal; 2023-07-16)
DX: J44.1 Chronic obstructive pulmonary disease with (acute) exacerbation (principal); J96.11 Chronic respiratory failure with hypoxia; F10.939 Alcohol use, unspecified with withdrawal, unspecified; E87.1 Hypo-osmolality and hyponatremia; E87.20 Acidosis, unspecified; E27.40 Unspecified adrenocortical insufficiency; F17.210 Nicotine dependence, cigarettes, uncomplicated; I25.10 Atherosclerotic heart disease of native coronary artery without angina pectoris; J84.10 Pulmonary fibrosis, unspecified; M48.061 Spinal stenosis, lumbar region without neurogenic claudication; K59.00 Constipation, unspecified; G89.29 Other chronic pain; K76.0 Fatty (change of) liver, not elsewhere classified; F32.A Depression, unspecified; J43.9 Emphysema, unspecified; D63.8 Anemia in other chronic diseases classified elsewhere; R94.5 Abnormal results of liver function studies; R07.89 Other chest pain; R13.10 Dysphagia, unspecified; E86.0 Dehydration; K21.9 Gastro-esophageal reflux disease without esophagitis; R26.0 Ataxic gait; R25.1 Tremor, unspecified; I95.1 Orthostatic hypotension; J20.9 Acute bronchitis, unspecified; J44.0 Chronic obstructive pulmonary disease with (acute) lower respiratory infection; R26.89 Other abnormalities of gait and mobility; Z99.3 Dependence on wheelchair; Z20.822 Contact with and (suspected) exposure to COVID-19; Z99.81 Dependence on supplemental oxygen; Z83.3 Family history of diabetes mellitus; Z79.899 Other long term (current) drug therapy